=== PATIENT | male | born 1950 | race Caucasian/White ===

== ENCOUNTER 2017-10-25 09:50 | Emergency (ER) | payer MEDICARE ==
[~2017-10-25] VITALS: Ht 180.3 cm; Wt 88.2 kg
[2017-10-25] MEDS ORDERED: COLCHICINE0.6 M2 PO ×2 (10:22→10:27)
[2017-10-25] MEDS ORDERED: INDOCIN25 MG PO ×2 (10:23→10:27)
[2017-10-25 10:35] VITALS: BP 149/91
== END 2017-10-25 10:35 | disposition home or self-care (01) ==
LOC: ED 09:50
DX: M10.9 Gout, unspecified (principal); M79.672 Pain in left foot